=== PATIENT | female | born 1975 | race Two or more races ===

== ENCOUNTER → 2022-07-15 | Outpatient (CLI) | payer BC ==
[2022-07-15 08:40] LABS: Basophils # (auto) 0.1 10 ^3/uL (0-0.2); Eosinophils # (auto) 0.2 10 ^3/uL (0-0.8); Hematocrit 40.6 % (36.0-46.0); Lymphocytes # (auto) 1.8 10 ^3/uL (0.4-5.4); Monocytes # (auto) 0.4 10 ^3/uL (0-1.3); Neutrophils # (auto) 4.2 10 ^3/uL (1.6-8.6); Red Cell Distribution Width 15.1 % (11.8-14.3)
[2022-07-15 08:42] LABS: Basophils % (auto) 0.9 % (0.0-2.0); Eosinophils % (auto) 3.3 % (0.0-7.0); Hemoglobin 13.5 g/dL (12.2-16.2); Lymphocytes % (auto) 26.6 % (10.0-50.0); Mean Corpuscular Hemoglobin 26.1 pg (28.0-32.0); Mean Corpuscular Hgb Conc. 33.1 g/dL (32.0-36.0); Mean Corpuscular Volume 78.9 fL (80.0-100.0); Monocytes % (auto) 5.5 % (0.0-12.0); Neutrophils % (auto) 63.7 % (37.0-80.0); Nucleated Red Blood Cells % 0.1 %; Red Blood Cells 5.15 10^6/uL (4.0-5.20); White Blood Cell 6.7 10^3/uL (4.4-10.8)
[2022-07-15 08:45] LABS: Urine Bacteria NONE SEEN /hpf (None Seen); Urine Blood 3+ /uL (Negative); Urine Mucus FEW (None Seen); Urine Specific Gravity 1.029 (1.001-1.035); Urine WBC 4 /hpf (0 - 5)
[2022-07-15 09:14] LABS: Calcium 9.4 mg/dL (8.5-10.1)
[2022-07-15 09:19] LABS: Bilirubin, Total 0.6 mg/dL (0.2-1.0); Total Protein 8.4 g/dL (6.4-8.2)
== END | disposition home or self-care (01) ==
LOC: LAB 07:59
PROVIDERS: ATTEND Nurse Practitioner Family
DX: E03.9 Hypothyroidism, unspecified (principal); R03.0 Elevated blood-pressure reading, without diagnosis of hypertension
CPT/HCPCS: 36415; 80053; 80061; 81001; 84439; 84443; 85025

== ENCOUNTER → 2022-10-14 | Outpatient (CLI) | payer BC ==
[2022-10-14 11:23] LABS: Alanine Aminotransferase 19 U/L (13-56); Albumin 3.6 g/dL (3.4-5.0); Aspartate Aminotransferase 10 U/L (15-37); Bilirubin, Direct < 0.1 mg/dL (0-0.2)
[2022-10-14 11:26] LABS: Alkaline Phosphatase 65 U/L (45-117); Bilirubin, Total 0.4 mg/dL (0.2-1.0); Total Protein 7.7 g/dL (6.4-8.2)
[2022-10-14 11:59] LABS: Micro Albumin 45.3 mg/L (0-30.0)
[2022-10-15 14:00] LABS: Hepatitis A Ab IgM Negative
[2022-10-15 14:01] LABS: Hepatitis B Core IgM Negative; Hepatitis C Antibody Negative (Negative)
== END | disposition home or self-care (01) ==
LOC: LAB 10:32
PROVIDERS: ATTEND Nurse Practitioner Family
DX: E11.9 Type 2 diabetes mellitus without complications (principal); R94.5 Abnormal results of liver function studies
CPT/HCPCS: 36415; 80076; 82043; 82570; 86705; 86709; 86803; 87340

== ENCOUNTER → 2024-05-12 | Outpatient (CLI) | payer BC ==
[2024-05-12 06:51] LABS: Basophils # (auto) 0.1 10 ^3/uL (0-0.2); Eosinophils # (auto) 0.2 10 ^3/uL (0-0.8); Hemoglobin 11.1 g/dL (12.2-16.2); Monocytes # (auto) 0.5 10 ^3/uL (0-1.3)
[2024-05-12 06:53] LABS: Basophils % (auto) 0.7 % (0.0-2.0); Eosinophils % (auto) 2.2 % (0.0-7.0); Hematocrit 34.3 % (36.0-46.0); Lymphocytes % (auto) 22.4 % (10.0-50.0); Mean Corpuscular Hemoglobin 24.9 pg (28.0-32.0); Mean Corpuscular Hgb Conc. 32.3 g/dL (32.0-36.0); Mean Corpuscular Volume 77.1 fL (80.0-100.0); Monocytes % (auto) 6.1 % (0.0-12.0); Neutrophils # (auto) 6.1 10 ^3/uL (1.6-8.6); Neutrophils % (auto) 68.6 % (37.0-80.0); Nucleated Red Blood Cells % 0.1 %; Platelet Count (auto) 326 10^3/uL (140-450); Red Blood Cells 4.45 10^6/uL (4.0-5.20); Red Cell Distribution Width 15.3 % (11.8-14.3); White Blood Cell 8.9 10^3/uL (4.4-10.8)
[2024-05-12 07:11] LABS: Creatinine, Urine 123.86 mg/dL (30.0-125.0)
[2024-05-12 07:13] LABS: Alanine Aminotransferase 15 U/L (7-40); Alkaline Phosphatase 76 U/L (46-116); Anion Gap 8 (5-15); BUN/Creatinine Ratio 19.2 (10.0-20.0); Blood Urea Nitrogen 15 mg/dL (9-23); Calcium 10.3 mg/dL (8.7-10.4); Carbon Dioxide 26 mmol/L (20-31); Chloride 106 mmol/L (98-107); Potassium 4.5 mmol/L (3.5-5.1); Sodium 140 mmol/L (136-145)
[2024-05-12 07:14] LABS: Albumin 4.4 g/dL (3.2-4.8)
[2024-05-12 07:15] LABS: Bilirubin, Total 0.3 mg/dL (0.2-1.0); HDL Cholesterol 41 mg/dL (40-59); Total Protein 7.3 g/dL (5.7-8.2)
[2024-05-12 07:16] LABS: Micro Albumin < 3.0 mg/L (<30.0)
[2024-05-12 07:17] LABS: Aspartate Aminotransferase < 8 U/L (13-40); Cholesterol 215 mg/dL (< 200); Glucose 146 mg/dL (74-106); LDL Cholesterol 157 mg/dL (< 100); Microalb/Creat Ratio, Urine < 2.00; Triglycerides 226 mg/dL (< 150)
== END | disposition home or self-care (01) ==
LOC: LAB 06:30
PROVIDERS: ATTEND Nurse Practitioner Family
DX: E11.65 Type 2 diabetes mellitus with hyperglycemia (principal); E03.9 Hypothyroidism, unspecified
CPT/HCPCS: 36415; 80053; 80061; 82043; 82570; 83036; 84439; 84443; 85025